=== PATIENT | female | born 1930 | race Caucasian/White ===

== ENCOUNTER → 2016-10-13 | Outpatient (CLI) | payer MEDICARE, OTHER ==
[~2016-10-13] MED LIST: CALCIUM + D3 E1 EACH PO; CARDIZEM CD (T120 MG PO; CARDIZEM CD180 MG PO; COUMADIN ** IA5 MG PO; FOLIC ACID 40400 MCG PO; HYDRODIURIL25 MG PO; KCL - MICRO-K10 MEQ PO; LEVAQUIN 250 M250 MG PO; MECLIZINE HCL25 M1 PO; MEVACOR20 MG PO; NORVASC2.5 MG PO; PRILOSEC20 MG PO; SYSTANE BALANCE10 ML OPHTH; TOPROL XL50 MG PO; TUMS REGULAR ST1 TAB PO; VITAMIN B-650 MG PO; VITAMIN D1000 UNI1 PO
[2016-10-13 11:33] LABS: HEMATOCRIT 38.3 % (30.0-46.0); HEMOGLOBIN 12.6 g/dL (10.0-15.0); MCH 29.8 pg (27.0-34.0); MCHC 32.9 gm/dL (32.0-36.5); MCV 90.5 fl (83.0-98.0); MPV 10.7 fl (9.4-12.4); RBC 4.23 M/uL (3.00-5.00); RDW-CV 14.2 % (11.9-14.6); WBC 6.4 K/uL (4.0-11.0)
== END ==
LOC: LGSMG 11:08
PROVIDERS: Internal Medicine
DX: D64.9 Anemia, unspecified (principal)

== ENCOUNTER → 2016-10-22 | Outpatient (CLI) | payer MEDICARE, OTHER ==
[2016-10-22 12:56] LABS: BASOPHIL # 0.1 K/uL (0.0-0.2); BASOPHIL % 0.8 %; EOSINOPHIL # 0.1 K/uL (0.0-0.5); EOSINOPHIL % 1.3 %; HEMATOCRIT 36.7 % (30.0-46.0); HEMOGLOBIN 12.2 g/dL (10.0-15.0); IMMATURE GRANULOCYTE % 0.2 %; LYMPHOCYTE # 1.7 K/uL (0.8-4.0); LYMPHOCYTE % 27.9 %; MCH 30.2 pg (27.0-34.0); MCHC 33.2 gm/dL (32.0-36.5); MCV 90.8 fl (83.0-98.0); MONOCYTE # 0.6 K/uL (0.0-1.0); MONOCYTE % 10.1 %; MPV 10.6 fl (9.4-12.4); NEUTROPHIL # (ANC) 3.6 K/uL (1.8-7.8); NEUTROPHIL % 59.7 %; NRBC % 0 /100WBC (0-0.00); PLATELET COUNT 227 K/uL (150-450); RBC 4.04 M/uL (3.00-5.00); RDW-CV 14.2 % (11.9-14.6)
[2016-10-22 13:08] LABS: ALBUMIN 3.6 gm/dL (3.5-5.0); ANION GAP 13.2 (10.0-19.0); CALCIUM 8.8 mg/dL (8.5-10.5); CREATININE 1.4 mg/dL (0.5-1.1); POTASSIUM 4.2 mMol/L (3.7-5.1); TOTAL BILIRUBIN 0.7 mg/dL (0.0-1.5)
== END | disposition disaster alternative care site (69) ==
LOC: LNHI 12:48
PROVIDERS: Internal Medicine Interventional Cardiology
DX: I10 Essential (primary) hypertension (principal); I48.0 Paroxysmal atrial fibrillation; R25.1 Tremor, unspecified